=== PATIENT | male | born 1945 | race Caucasian/White ===

== ENCOUNTER 2016-09-03 11:39 | Emergency (ER) | payer MEDICARE, MEDICAID ==
[~2016-09-03] VITALS: Ht 190.5 cm; Wt 95.7 kg
[~2016-09-03 11:39] MED LIST: ATENOLOL25 MG PO; COUMADIN 7.5MG7.5 MG PO; DIAZEPAM5 M1 PO; DILTIAZEM ER240 MG PO; FLOMAX0.4 MG PO; GEMFIBROZIL600 MG PO; HYDROCHLOROTHIA50 MG PO; KEFLEX 500MG.500 MG PO; KLOR-CON M2020 MEQ PO; LEVAQUIN500 MG PO; PROVENTIL0.09 MG/A1 IH; SIMVASTATIN20 MG PO; TESSALON PERLE100 M1 PO; TIROSINT75 MCG PO
[2016-09-03] MEDS ORDERED: ZITHROMAX Z-PA250 M2 PO (12:50)
--- NOTE | 2016-09-03 12:51 | Urgent Treatment Center Report ---
History of Present Issue Date/Time Seen by Provider 09/03/16 1245 Visit Reason Pt arrived:Walked Presenting Problem:PT STATES PAIN TO LEFT RIBS/SIDE FROM COUGH. STATES PRODUCTIVE COUGH WITH YELLOW SPUTUM. STATES SYMPTOMS BEGAN YESTERDAY. PT STATES PAIN TO AREAS WITH MOVEMENT OR WHEN HE RUBS AREA WITH HIS HAND Location if Accident: Onset of symptoms date/time:09/02/16/ or onset unknown for:MEDICAL HX UNKNOWN Have you (or family members/close friends) recently traveled outside the [place]? N If Yes, where/when: Have you had exposure to infectious disease within the past month? TB? Other? Specify: Source patient Exam Limitations no limitations Comment 70-year-old male presents for coughing up yellow sputum was treated 2 weeks ago for a sinus infection. Reports no cardiac history. Patient states when he coughs he has pain in his rib area. ALLERGIES Coded Allergies: No Known Allergies (04/02/16) Home Medications Active Scripts ALBUTEROL (Proventil Hfa Inhaler) 1-2 PUFF IH Q4-6H PRN #1 CAN Ref 1 Prov: 04/02/16 Reported Medications Atenolol (Atenolol) 25 MG PO BID Simvastatin 20 MG PO QHS Diltiazem Hydrochloride (Diltiazem Er) 240 MG PO Levothyroxine Sodium (Tirosint) 75 MCG PO DAILY WARFARIN SOD (Coumadin) 6 MG PO DAILY #30 TAB Gemfibrozil (GEMFIBROZIL 600MG) 600 MG PO DAILY History Medical History General CAD? No Angina: No NC: No Hypertension? Yes Hyperlipidemia? Yes CHF? No DVT? Yes PE? No COPD? Yes Asthma? No Anemia? No GERD? No Gastric ulcers? No GI Bleed? No Hernia? No Thyroid Problems? Yes Hypothyroidism? Yes CVA? No Seizures? No Diabetes? No Renal Insuffiency? No UTI? No Stones? No BPH? No GB Disease: No Nephritic Syndrome? No Asplenia? No Hepatitis? No Sickle Cell Disease? No Arthritis? Yes Migraines? No Cataracts? Yes Glaucoma? No MRSA? No HIV? No TB? No Anxiety? No Depression? No Cancer? No Immunization HX DT/Tetanus 09/14/07 Flu 2011-FSN Pneumonia Received In Past Surgical Hx Previous Surgery?Y MICROLARYNGOSCOPY W/ BIOP CATARACTS EYES BILAT Family History Family HX Diabetes No CAD Yes Hypertension Yes Hyperlipidemia Yes Cancer Yes TB No Social History Smoking Hx Smoker: Former Smoker Tobacco: No Packs/day N/A Alcohol Alcohol: No Review of Systems All Other Systems Reviewed and Negative Respiratory see HPI, cough Physical Exam Vital Signs Vital Signs Date Time Temp Pulse Resp B/P Pulse O2 O2 Flow FiO2 Ox Delivery Rate 09/03 1145 98.5 68 20 156/81 97 - WBC >12,000 or <4,000 or 10% bands? 2 or more SIRS Criteria Met? B/P:156/81 MAP:106 Creatinine >2.0? UA output<0.5ml/kg/hr for 2 hrs? Platelet count >100,000? Lactate >2.0mmol/1? INR >1.2 or PTT > than 60 sec? Evidence of Organ Dysfunction? Provider documented clinical suspician of infection? Sepsis Criteria Count: 1 Sepsis Risk: General Appearance normal appearance, no apparent distress, thin Eye Exam - bilateral eye normal exam, bilateral eye PERRL Ear, Nose, Throat hearing grossly normal, normal ENT inspection Neck normal inspection Respiratory Status Yes: trachea midline, chest symmetrical, non tender chest. No: respiratory distress. Lung Sounds bilateral: normal breath sounds, lungs clear. Cardiovascular normal exam, regular rate/rhythm Peripheral Pulses Pulses normal Yes Neurologic alert, normal exam, oriented x 3 Medical Decision Making LABS/Meds/Orders Pt receiving controlled substance in ED? No Results/Orders Orders Procedure Date/time Status CHEST(2 VIEWS-NOT PORTABLE) 09/03 1152 Active XRAY/CT/US XRAY/CT/US XRAY chest XR interpretation by reviewed by me (and addy) Xray Results normal/NAD Comment No acute changes from prior chest x-ray in March Departure Departure Time of Disposition 1248 Disposition DC Home or Self Care(routine) Clinical Impression Primary Impression: Bronchitis Condition STABLE Referrals Lamine Ricks MD (Family): 2 Days-Call Office Patient Instructions DI for Acute Bronchitis Additional Instructions Follow-up with Dr. Ricks this week return if symptoms worsen patient states he's taken Zithromax well in the past. Discussed with Rambo need for PT and INR for Coumadin Discharge Counseling Counseled pt/family regarding diagnosis, medications/RX, home care, follow up needs Prescriptions Current Visit Scripts Azithromycin (Zithromax) 250 MG PO DAILY #6 TAB USE DIRECTED. at [id number]
[2016-09-03 12:55] VITALS: BP 156/81
--- NOTE | 2016-09-03 13:19 | RADIOLOGY REPORT PS360 ---
CHEST(2 VIEWS-NOT PORTABLE) COMPARISON: PA and lateral chest 04/02/2016 HISTORY: Productive cough TECHNIQUE: PA and lateral chest FINDINGS: Mild to moderate emphysematous changes seen with hyperexpansion of lung hart and flattening of the hemidiaphragms. There is partial silhouetting of the left heart border likely due to scarring and/or partial collapse of the lingula similar in appearance the previous chest film March 2016. The remainder left lung field is clear and right lung field is clear. Cardiac size is normal and the vascularity is normal and there is no pleural fluid. IMPRESSION: Mild to moderate COPD with likely scarring and/or atelectasis of the lingula, difficult to deftly exclude a lingular pneumonia but with somewhat doubt it.
== END 2016-09-03 12:55 | disposition home or self-care (01) ==
LOC: UTC 11:39
DX: J40 Bronchitis, not specified as acute or chronic (principal)